=== PATIENT | male | born 1960 | race Two or more races ===

== ENCOUNTER 2019-08-03 10:39 | Emergency (ER) | payer BC, OTHER ==
[~2019-08-03] VITALS: Ht 170.2 cm; Wt 99.3 kg
[2019-08-03 10:43] VITALS: BP 136/82
--- NOTE | 2019-08-03 10:56 | NUR ---
pt to room from triage with a steady gait.
--- NOTE | 2019-08-03 11:00 | NUR ---
MD IS AT THE BEDSIDE FOR ASSESSMENT
--- NOTE | 2019-08-03 11:04 | NUR ---
COVID 19 SWAB PERFORMED AT THE BEDSIDE BY
[2019-08-03 11:38] LABS: BASOPHILS # (AUTO) 0.02 x10^3/uL (0-0.1); BASOPHILS % (AUTO) 0 % (0-1); EOSINOPHILS % (AUTO) 0 % (1-7); LYMPHOCYTES # (AUTO) 0.95 x10^3/uL (1-3.4); LYMPHOCYTES % (AUTO) 11 % (22-44); MD NO; MEAN CORPUSCULAR HEMOGLOBIN 29.4 pg (27.5-34.5); MEAN CORPUSCULAR HGB CONC 33.9 g/dL (33.2-36.2); MEAN CORPUSCULAR VOLUME 86.7 fL (81-97); MEAN PLATELET VOLUME 9.1 fL (7.4-10.4); MONOCYTES # (AUTO) 0.95 x10^3/uL (0.2-0.8); MONOCYTES % (AUTO) 11 % (2-9); NEUTROPHILS # (AUTO) 6.55 x10^3/uL (1.8-6.8); NEUTROPHILS % (AUTO) 77 % (42-75); PLATELET COUNT 164 x10^3/uL (130-400); RED BLOOD COUNT 4.99 x10^6/uL (4.38-5.82); RED CELL DISTRIBUTION WIDTH 13.2 % (9.4-14.8)
[2019-08-03 11:45] LABS: ALBUMIN 3.4 g/dL (3.4-5.0); ANION GAP 9 mmol/L (5-15); CHLORIDE 98 mmol/L (98-107)
[2019-08-03 11:46] LABS: CREATININE 1.09 mg/dL (0.7-1.3)
== END 2019-08-03 13:15 | disposition home or self-care (01) ==
LOC: ED 11:09
DX: J12.89 Other viral pneumonia (principal); Z20.828 Contact with and (suspected) exposure to other viral communicable diseases; M79.10 Myalgia, unspecified site
CPT/HCPCS: 36415; 71045; 80048; 82040; 85025; 99284; U0001

== ENCOUNTER 2019-08-24 14:33 | Emergency (ER) | payer BC ==
[~2019-08-24] VITALS: Ht 170.2 cm; Wt 100.9 kg
[2019-08-24 14:36] VITALS: BP 167/83
--- NOTE | 2019-08-24 14:59 | NUR ---
pt seen by , ear infection, tbdc w abx. as
--- NOTE | 2019-08-24 15:08 | NUR ---
pt presents to ED with c/o right ear pain x 2 days, pt a&o, resps even and unlabored. pt examined by OWEN Duron, to be dc'd. report given to LAURENCE Hernandez.
== END 2019-08-24 15:34 | disposition home or self-care (01) ==
LOC: ED 15:14
DX: H66.001 Acute suppurative otitis media without spontaneous rupture of ear drum, right ear (principal)
CPT/HCPCS: 99283

== ENCOUNTER 2019-09-07 15:49 | Emergency (ER) | payer BC ==
[~2019-09-07] VITALS: Ht 170.2 cm; Wt 103.1 kg
[2019-09-07 15:59] VITALS: BP 161/90
== END 2019-09-07 16:55 | disposition home or self-care (01) ==
LOC: ED 16:49
DX: H65.02 Acute serous otitis media, left ear (principal); I10 Essential (primary) hypertension
CPT/HCPCS: 99282

== ENCOUNTER 2020-01-23 07:02 | Emergency (ER) | payer BC ==
[~2020-01-23] VITALS: Ht 170.2 cm; Wt 103.0 kg
[2020-01-23 07:07] VITALS: BP 160/94
== END 2020-01-23 08:39 | disposition home or self-care (01) ==
LOC: ED 07:55
DX: U07.1 COVID-19 (principal); B34.9 Viral infection, unspecified; I10 Essential (primary) hypertension; E78.5 Hyperlipidemia, unspecified; E78.00 Pure hypercholesterolemia, unspecified
CPT/HCPCS: 36415; 71045; 87635; 99284

== ENCOUNTER 2020-01-30 05:43 | Inpatient (IN) | payer BC ==
[~2020-01-30] VITALS: Ht 170.2 cm; Wt 98.3 kg
--- NOTE | 2020-01-30 07:57 | NUR ---
per radiology, they are awaiting for this pt to be placed in an e.r. room prior to xr. charge entry clerk is aware, and we are trying to expedite the delayed order at this time.
--- NOTE | 2020-01-30 08:03 | NUR ---
appellate court judge:Pt dior w/ steady gait to room from lobby.
--- NOTE | 2020-01-30 08:56 | NUR ---
Pt report to Yanira walsh.
--- NOTE | 2020-01-30 09:02 | NUR ---
RECEIVED REPORT FROM LAURENCE CINTRON TO ASSUME CARE OF PT. PT. RESTING ON GURNEY; SLIGHTLY DIAPHORETIC. DENIES NEEDS. SPO2 AND B/P MONIOTRS IN PLACE. CALL LIGHT IN REACH. AWAITING PROVIDER REHCECK.
[2020-01-30] MEDS ORDERED: LOVA20TA2 PO (09:24)
[2020-01-30] MEDS ORDERED: LISI1TAB39 PO (09:24)
--- NOTE | 2020-01-30 09:25 | NUR ---
MED REC COMPLETED. VS UPDATED. PT. STABLE. DENIES NEEDS.
[2020-01-30] MEDS ORDERED: AZITHROMYCIN 500 MG in SODIUM CHLORIDE 0.9% 250 ML IV ONE (10:30)
[2020-01-30] MEDS: CEFTRIAXONE PMX 1GM/50ML 50 ML IVPB ONE ×3 (10:30→10:47)
--- NOTE | 2020-01-30 10:31 | NUR ---
IV STARTED. BLOOD CULTURES DRAWN AT THIS TIME
--- NOTE | 2020-01-30 10:38 | NUR ---
LAB AT [facility] COMPLETED 2ND SET OF BLOOD CULTURES. FOOD TRAY ORDERED FOR PT.
[2020-01-30] MEDS ORDERED: CEFTRIAXONE PMX 1GM/50ML 50 ML ONE (10:40)
[2020-01-30 10:49] LABS: BASOPHILS % (AUTO) 0 % (0-1); EOSINOPHILS % (AUTO) 0 % (1-7); LYMPHOCYTES % (AUTO) 14 % (22-44); MEAN CORPUSCULAR HEMOGLOBIN 28.7 pg (27.5-34.5); MEAN CORPUSCULAR HGB CONC 33.9 g/dL (33.2-36.2); MEAN PLATELET VOLUME 9.4 fL (7.4-10.4); MONOCYTES % (AUTO) 8 % (2-9); NEUTROPHILS % (AUTO) 78 % (42-75); PLATELET COUNT 114 x10^3/uL (130-400); RED BLOOD COUNT 5.68 x10^6/uL (4.38-5.82); RED CELL DISTRIBUTION WIDTH 13.8 % (9.4-14.8)
--- NOTE | 2020-01-30 10:49 | NUR ---
PT. TRANSFERED TO HOSPITAL BED PT. WILL BE HOLD IN ED. MEDICATED PER JUN. DENIES OTHER NEEDS. SPO2 MONITOR IN PLACE.
[2020-01-30 10:51] LABS: MD NO
[2020-01-30 11:00] LABS: ALBUMIN 4.1 g/dL (3.4-5.0); ANION GAP 10 mmol/L (5-15); CALCIUM 8.9 mg/dL (8.5-10.1); CHLORIDE 101 mmol/L (98-107)
--- NOTE | 2020-01-30 11:00 | NUR ---
BEDSIDE REPORT RECEIVED FROM LAURENCE BLANCO FOR TRANSFER OF CARE.
--- NOTE | 2020-01-30 11:05 | NUR ---
UPON FLUSHING IV FOR PRINTER MACHINE PT. C/O SEVERE PAIN AT IV SITE. NO REDNESS/SWELLING NOTED BUT PT. UNABLE TO TOLERATE FLUSING IV; IV D/C'ED WITH TIP INTACT. REPORT TO LAURENCE HI TO ASSUME CAER OF PT. AT THIS TIME.
[2020-01-30 11:06] LABS: ALANINE AMINOTRANSFERASE 56 U/L (12-78); ALKALINE PHOSPHATASE 44 U/L (45-117); BILIRUBIN,TOTAL 0.8 mg/dL (0.2-1.0); C-REACTIVE PROTEIN, QUANT 0.64 mg/dL (0.02-0.49); CREATININE 0.99 mg/dL (0.7-1.3)
--- NOTE | 2020-01-30 11:55 | NUR ---
22 GAUGE IV STARTED RIGHT HAND, ROCEPHIN RUNNING. FOOD TRAY PROVIDED TO PATIENT.
[2020-01-30] MEDS ORDERED: BISACODYL 10 MG SUPP PR PRN (12:00)
[2020-01-30] MEDS ORDERED: ONDANSETRON 2MG/ML, 2ML IVPush PRN (12:00)
[2020-01-30] MEDS ORDERED: ONDANSETRON ODT 4 MG PO PRN (12:00)
[2020-01-30] MEDS ORDERED: DEXAMETHASONE 1 MG TABLET PO SCH (12:00)
[2020-01-30] MEDS ORDERED: PROMETHAZINE 25 MG/ML, 1ML IM PRN (12:00)
[2020-01-30] MEDS ORDERED: DOCUSATE 100 MG CAPSULE PO PRN (12:00)
[2020-01-30] MEDS ORDERED: POLYETHYLENE GLYCOL 17 GM PACKET PO PRN (12:00)
[2020-01-30] MEDS ORDERED: ACETAMINOPHEN 325 MG TABLET PO PRN (12:00)
[2020-01-30] MEDS ORDERED: LABETALOL 5MG/ML, 20ML IVPush PRN (12:00)
[2020-01-30] MEDS ORDERED: DEXAMETHASONE 4 MG TABLET ONE (12:15)
[2020-01-30] MEDS ORDERED: ENOXAPARIN 40 MG/0.4 ML ONE (12:15)
[2020-01-30] MEDS ORDERED: ZINC SULFATE 220 MG CAPSULE ONE (12:15)
[2020-01-30] MEDS: ZINC SULFATE 220 MG CAPSULE PO SCH (12:48)
[2020-01-30] MEDS: ENOXAPARIN 40 MG/0.4 ML SQ SCH (12:50)
--- NOTE | 2020-01-30 12:57 | NUR ---
PATIENT MEDICATED PER eMAR, CONNECTED TO VITALS MACHINE, SIDE RAILS UP X2, CALL LIGHT WITHIN REACH, NO FURTHER NEEDS AT THIS TIME.
[2020-01-30] MEDS ORDERED: ACETAMINOPHEN 325 MG TABLET ONE (14:17)
[2020-01-30] MEDS: SODIUM CHLORIDE 0.9% 1,000 ML IV SCH ×2 (14:19→22:11)
--- NOTE | 2020-01-30 14:33 | NUR ---
PATIENT MEDICATED PER eMAR, CONNECTED TO VITALS MACHINE, CALL LIGHT [place] REACH, NO FURTHER NEEDS AT THIS TIME.
--- NOTE | 2020-01-30 16:09 | NUR ---
PATIENT RESTING IN GURNEY, WATCHING TV, CONNECTED TO VITALS MACHINE, CALL LIGHT WITHIN REACH, NO SIGNS OF ACUTE DISTRESS.
--- NOTE | 2020-01-30 17:11 | NUR ---
DINNER TRAY PROVIDED, CALL LIGHT WITHIN REACH, NO FURTHER NEEDS AT THIS TIME.
--- NOTE | 2020-01-30 18:22 | NUR ---
PATIENT RESTING IN GURNEY, WATCHING TV, NO SIGNS OF ACUTE DISTRESS, CALL LIGHT WITHIN REACH.
[2020-01-30] MEDS ORDERED: ASCORBIC ACID 500 MG TABLET ONE (18:55)
[2020-01-30] MEDS: ASCORBIC ACID 500 MG TABLET PO SCH (18:58)
--- NOTE | 2020-01-30 18:58 | NUR ---
PATIENT MEDICATED PER eMAR, CONNECTED TO VITALS MACHINE, CALL LIGHT WITHIN REACH, NO FURTHER NEEDS AT THIS TIME.
--- NOTE | 2020-01-30 19:57 | NUR ---
PATIENT LAYING IN GURNEY WITH EYES CLOSED, CONNECTED TO VITALS MACHINE, CALL LIGHT WITHIN REACH.
--- NOTE | 2020-01-30 21:33 | NUR ---
REPORT CALLED TO LAURENCE MCCRACKEN ON MEDICAL/TELEMETRY.
--- NOTE | 2020-01-30 21:57 | NUR ---
PATIENT TRANSFERRED TO FLOOR VIA HOSPITAL BED WITH TRANSPORT STAFF. ALL PATIENT BELONGINGS GATHERED AND TAKEN WITH PATIENT TO THE FLOOR.
[2020-01-30 22:10] VITALS: BP 120/78
[2020-01-31 02:08] VITALS: BP 108/70
[2020-01-31 06:20] LABS: BASOPHILS % (AUTO) 0 % (0-1); EOSINOPHILS % (AUTO) 0 % (1-7); LYMPHOCYTES % (AUTO) 26 % (22-44); MEAN CORPUSCULAR HEMOGLOBIN 28.9 pg (27.5-34.5); MEAN CORPUSCULAR HGB CONC 33.7 g/dL (33.2-36.2); MEAN PLATELET VOLUME 9.6 fL (7.4-10.4); MONOCYTES % (AUTO) 9 % (2-9); NEUTROPHILS % (AUTO) 65 % (42-75); PLATELET COUNT 120 x10^3/uL (130-400); RED BLOOD COUNT 5.05 x10^6/uL (4.38-5.82)
[2020-01-31 06:27] LABS: CHLORIDE 110 mmol/L (98-107)
[2020-01-31 06:30] LABS: MD NO
[2020-01-31 06:40] LABS: ALANINE AMINOTRANSFERASE 52 U/L (12-78); ALBUMIN 3.6 g/dL (3.4-5.0); ALKALINE PHOSPHATASE 42 U/L (45-117); ANION GAP 9 mmol/L (5-15); BILIRUBIN,TOTAL 0.6 mg/dL (0.2-1.0); CALCIUM 8.4 mg/dL (8.5-10.1); CHOL/HDL RATIO 4.6; CHOLESTEROL, TOTAL 119 mg/dL (140-239); CREATININE 0.85 mg/dL (0.7-1.3); HDL CHOL % 22 % (26-37); HDL CHOLESTEROL (DIRECT) 26 mg/dL (40-60); LDL CHOLESTEROL,CALCULATED 76 mg/dL (54-169); LDL/HDL RATIO 2.9 (0.5-3.0); TOTAL PROTEIN 7.2 g/dL (6.4-8.2); TRIGLYCERIDES 87 mg/dL (50-200); VLDL CHOLESTEROL 17 mg/dL (0-25)
[2020-01-31 07:55] VITALS: BP 104/64
[2020-01-31] MEDS: ASCORBIC ACID 500 MG TABLET PO SCH ×2 (09:40→16:36)
[2020-01-31] MEDS: ZINC SULFATE 220 MG CAPSULE PO SCH (09:40)
[2020-01-31] MEDS: CEFTRIAXONE PMX 2GM/50ML 50 ML IVPB SCH (10:50)
[2020-01-31] MEDS: ENOXAPARIN 40 MG/0.4 ML SQ SCH (12:45)
[2020-01-31] MEDS: AZITHROMYCIN 500 MG in SODIUM CHLORIDE 0.9% 250 ML IV SCH (12:45)
[2020-01-31] MEDS: DEXAMETHASONE 4 MG TABLET PO SCH (12:45)
[2020-01-31 13:55] VITALS: BP 121/78
[2020-01-31 19:20] VITALS: BP 134/74
[2020-02-01 01:01] VITALS: BP 147/94
[2020-02-01] MEDS ORDERED: TEMAZEPAM 15 MG CAPSULE ONE (01:48)
[2020-02-01 06:48] VITALS: BP 132/80
[2020-02-01] MEDS: ASCORBIC ACID 500 MG TABLET PO SCH ×2 (08:44→17:05)
[2020-02-01] MEDS: ZINC SULFATE 220 MG CAPSULE PO SCH (08:44)
[2020-02-01] MEDS: CEFTRIAXONE PMX 2GM/50ML 50 ML IVPB SCH (11:07)
[2020-02-01 12:50] VITALS: BP 134/78
[2020-02-01] MEDS: AZITHROMYCIN 500 MG in SODIUM CHLORIDE 0.9% 250 ML IV SCH (13:18)
[2020-02-01] MEDS: DEXAMETHASONE 4 MG TABLET PO SCH (13:18)
[2020-02-01] MEDS: ENOXAPARIN 40 MG/0.4 ML SQ SCH (13:18)
[2020-02-01] MEDS ORDERED: AZIT500T PO (13:38)
[2020-02-01] MEDS ORDERED: ZINC220C7 PO (13:38)
[2020-02-01] MEDS ORDERED: ASCO500T9 PO (13:38)
[2020-02-01] MEDS ORDERED: DEXA4TAB66 PO (13:38)
[2020-02-01] MEDS ORDERED: CEFD300C37 PO (13:38)
[2020-02-01] MEDS ORDERED: TEMAZEPAM 15 MG CAPSULE PO ONE (21:00)
== END 2020-02-01 17:51 | disposition home or self-care (01) | DRG 177 ==
LOC: ED 06:17 → EDIP 11:35 → 4EST 22:01
PROVIDERS: ADMIT Internal Medicine; ATTEND Internal Medicine
DX: U07.1 COVID-19 (principal); J12.89 Other viral pneumonia; E87.1 Hypo-osmolality and hyponatremia; E87.2 Acidosis; E78.00 Pure hypercholesterolemia, unspecified; E78.5 Hyperlipidemia, unspecified; I10 Essential (primary) hypertension; Z79.899 Other long term (current) drug therapy
CPT/HCPCS: 36415; 71045; 80053; 80061; 83615; 83735; 84443; 85025; 86140; 87040; 93005; 96365; 96367; 99285; G0378; J0456; J0696; J1650; J7030; J7050

== ENCOUNTER 2020-02-14 12:47 | Emergency (ER) | payer BC ==
[~2020-02-14] VITALS: Ht 170.2 cm; Wt 96.5 kg
[~2020-02-14 12:47] MED LIST: ASCO500T9 PO; AZIT500T PO; CEFD300C37 PO; DEXA4TAB66 PO; LISI1TAB39 PO; LOVA20TA2 PO; ZINC220C7 PO
[2020-02-14 12:53] VITALS: BP 137/70
== END 2020-02-14 13:49 | disposition home or self-care (01) ==
LOC: ED 13:34
DX: Z11.59 Encounter for screening for other viral diseases (principal); I10 Essential (primary) hypertension
CPT/HCPCS: 71045; 87635; 99284

== ENCOUNTER 2020-04-19 09:14 | Emergency (ER) | payer BC ==
[~2020-04-19] VITALS: Ht 170.2 cm; Wt 98.6 kg
[2020-04-19 09:26] VITALS: BP 150/83
[2020-04-19] MEDS ORDERED: CETIRIZINE 10 MG TABLET PO SCH (10:30)
== END 2020-04-19 10:56 | disposition home or self-care (01) ==
LOC: ED 10:49
DX: F41.1 Generalized anxiety disorder (principal); R60.0 Localized edema; R06.02 Shortness of breath; I10 Essential (primary) hypertension
CPT/HCPCS: 71045; 93005; 99283

== ENCOUNTER 2020-08-17 08:12 | Emergency (ER) | payer BC, OTHER ==
[~2020-08-17] VITALS: Ht 172.7 cm; Wt 80.0 kg
[2020-08-17 08:18] VITALS: BP 137/86
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
[2020-08-17 09:19] LABS: AMPHETAMINE SCREEN, URINE Negative (Negative); BARBITURATE SCREEN, URINE Negative (Negative); BENZODIAZEPINE SCREEN, URINE Negative (Negative); CANNABINOID SCREEN, URINE Negative (Negative); COCAINE SCREEN, URINE Negative (Negative); METHADONE SCREEN, URINE Negative (Negative); OPIATE SCREEN, URINE Negative (Negative)
--- NOTE | 2020-08-17 09:33 | NUR ---
Patient given discharge instructions and they have confirmed that they understand the instructions. Patient ambulatory with steady gait.
== END 2020-08-17 09:39 | disposition home or self-care (01) ==
LOC: ED 09:28
DX: M62.830 Muscle spasm of back (principal); I10 Essential (primary) hypertension; V59.09XA Driver of pick-up truck or van injured in collision with other motor vehicles in nontraffic accident, initial encounter; Y93.89 Activity, other specified; Y92.410 Unspecified street and highway as the place of occurrence of the external cause; Y99.8 Other external cause status
CPT/HCPCS: 80307; 99283